=== PATIENT | female | born 1965 | race Hispanic/Latino ===

== ENCOUNTER 2018-01-16 20:37 | Emergency (ER) | payer BC, OTHER ==
[~2018-01-16 20:37] MED LIST: ALBI30PE SQ; AMLO10TA4 PO; ASPI-1005 PO; CIPR-278 PO; KETO120S2 TP; LISI40TA4 PO; LORA-705 PO; METF10004 PO; NAPR-1174 PO; PANT40TA25 PO; TRIA60LO5 TP
[2018-01-16] MEDS ORDERED: ACETAMINOPHEN-CODEINE ELIXIR 5 ML UDCUP ONE (20:50)
== END 2018-01-16 21:20 | disposition home or self-care (01) ==
LOC: EDH 20:37
DX: S93.492A Sprain of other ligament of left ankle, initial encounter (principal); E11.9 Type 2 diabetes mellitus without complications; K21.9 Gastro-esophageal reflux disease without esophagitis; I10 Essential (primary) hypertension; Z88.6 Allergy status to analgesic agent; W18.39XA Other fall on same level, initial encounter; Y93.01 Activity, walking, marching and hiking; Y92.89 Other specified places as the place of occurrence of the external cause; Y99.8 Other external cause status
CPT/HCPCS: 73610

== ENCOUNTER 2018-12-02 16:51 | Emergency (ER) | payer OTHER ==
[~2018-12-02 16:51] MED LIST changes: -ALBI30PE SQ; +ALBI30PE3 SQ; -AMLO10TA4 PO; +AMLO5TAB4 PO; +ATOR10 PO; -CIPR-278 PO; +INSU10VI3 SQ; -KETO120S2 TP; +KETO120S3 TP; +METF-446 PO; -METF10004 PO; +METO25 PO; +TRIA60LO11 TP; -TRIA60LO5 TP
== END 2018-12-02 17:07 | disposition home or self-care (01) ==
LOC: EDH 16:51
DX: J06.9 Acute upper respiratory infection, unspecified (principal); I10 Essential (primary) hypertension; E11.9 Type 2 diabetes mellitus without complications; K21.9 Gastro-esophageal reflux disease without esophagitis; Z90.710 Acquired absence of both cervix and uterus; Z88.5 Allergy status to narcotic agent; Z88.8 Allergy status to other drugs, medicaments and biological substances
CPT/HCPCS: 99281

== ENCOUNTER → 2019-05-03 | Outpatient (CLI) | payer OTHER | END | disposition home or self-care (01) | LOC: OIH 13:50 | PROVIDERS: ATTEND Internal Medicine | DX: M19.012 Primary osteoarthritis, left shoulder (principal) | CPT/HCPCS: 73030 ==

== ENCOUNTER 2021-10-10 05:01 | Emergency (ER) | payer MEDICARE, OTHER ==
[~2021-10-10] VITALS: Ht 149.9 cm; Wt 80.3 kg
[~2021-10-10 05:01] MED LIST changes: +KETO120S13 TP; -KETO120S3 TP; -LISI40TA4 PO; +LISI40TA9 PO; +LORA-699 PO; -LORA-705 PO; -PANT40TA25 PO; +PANT40TA54 PO
[2021-10-10 05:51] LABS: BASOPHILS % (AUTO) 0.5 % (0.0-5.0); EOSINOPHILS % (AUTO) 3.3 % (0.0-8.0); LYMPHOCYTES % (AUTO) 43.7 % (21.0-51.0); MEAN CORPUSCULAR HEMOGLOBIN 28.8 pg (27.0-33.0); MEAN CORPUSCULAR HGB CONC 33.2 g/dL (32.0-36.0); MEAN CORPUSCULAR VOLUME 86.7 fL (79-99); MONOCYTES % (AUTO) 3.7 % (3.0-13.0); NEUTROPHILS % (AUTO) 48.6 % (40.0-77.0); PLATELET COUNT (AUTO) 237 K/uL (130-400); RED BLOOD CELL COUNT(AUTO) 4.73 MIL/uL (4.00-5.50); RED CELL DISTRIBUTION WIDTH 13.3 % (11.0-15.5); WHITE BLOOD COUNT (AUTO) 9.7 K/uL (4.8-10.8)
[2021-10-10 05:52] LABS: APPEARANCE,URINE Clear (CLEAR); BILIRUBIN,URINE Negative (NEGATIVE); COLOR,URINE Yellow (YELLOW); GLUCOSE, URINE (UA) 500 mg/dL (NEGATIVE); KETONES,URINE Negative (NEGATIVE); LEUKOCYTE ESTERASE ,URINE Trace (NEGATIVE); NITRATE,URINE Negative (NEGATIVE); OCCULT BLOOD,URINE Negative (NEGATIVE); PH,URINE 6.5 (5.0-8.0); PROTEIN,URINE Negative (NEGATIVE); UROBILINOGEN,URINE 0.2 mg/dL (0.2-1.0)
[2021-10-10] MEDS ORDERED: KETOROLAC 30MG VIAL (30MG/ML) IV ONE (06:00)
[2021-10-10] MEDS ORDERED: FAMOTIDINE 20MG VIAL IV ONE (06:00)
[2021-10-10] MEDS ORDERED: METOCLOPRAMIDE 10 MG/2 ML VIAL IVP ONE (06:00)
[2021-10-10] MEDS ORDERED: PANTOPRAZOLE 40 MG/VIAL IVP ONE (06:00)
[2021-10-10] MEDS ORDERED: ONDANSETRON 4MG INJ IVP ONE (06:00)
[2021-10-10 06:03] LABS: BACTERIA,URINE Few /HPF (None Seen); MUCUS,URINE Few LPF (None Seen); RBC,URINE 0-1 /HPF (0-1)
[2021-10-10 06:08] LABS: ALBUMIN 3.3 g/dL (3.5-5.0); BILIRUBIN,TOTAL 0.4 mg/dL (0.2-1.0); CREATININE 0.6 mg/dL (0.5-1.5); POTASSIUM 3.9 mmol/L (3.5-5.1); TOTAL PROTEIN, SERUM 7.4 g/dL (6.0-8.3)
[2021-10-10] MEDS ORDERED: ONDA4TAB10 PO (08:26)
[2021-10-10] MEDS ORDERED: MELO7.5T12 PO (08:26)
[2021-10-10] MEDS ORDERED: DICY20TA2 PO (08:26)
[2021-10-10] MEDS ORDERED: METO-296 PO (08:26)
[2021-10-10] MEDS ORDERED: CEPH500B PO (08:26)
[2021-10-10] MEDS ORDERED: CEPHALEXIN 500 MG CAPSULE PO ONE (08:30)
[2021-10-10 09:26] VITALS: BP 132/74
== END 2021-10-10 09:33 | disposition home or self-care (01) ==
LOC: EDH 05:01
DX: E86.9 Volume depletion, unspecified (principal); R10.11 Right upper quadrant pain; R82.71 Bacteriuria; E11.9 Type 2 diabetes mellitus without complications; I10 Essential (primary) hypertension; K21.9 Gastro-esophageal reflux disease without esophagitis; Z90.49 Acquired absence of other specified parts of digestive tract; Z88.5 Allergy status to narcotic agent; Z79.1 Long term (current) use of non-steroidal anti-inflammatories (NSAID); Z79.4 Long term (current) use of insulin; Z79.82 Long term (current) use of aspirin; Z79.899 Other long term (current) drug therapy; Z87.442 Personal history of urinary calculi
CPT/HCPCS: 36415; 71045; 74176; 80053; 81001; 83690; 84484; 85025; 93005; 96374; 96375; 99285; C9113; J1885; J2405; J2765; J3490

== ENCOUNTER → 2022-05-19 | Outpatient (CLI) | payer MEDICARE ==
[~2022-05-19] MED LIST changes: +CEPH500B PO; +DICY20TA2 PO; +MELO7.5T12 PO; +METO-296 PO; +ONDA4TAB10 PO
== END | disposition home or self-care (01) ==
LOC: RAH 11:23
PROVIDERS: ATTEND Internal Medicine
DX: K59.00 Constipation, unspecified (principal)
CPT/HCPCS: 74018

== ENCOUNTER 2022-05-25 07:35 | Emergency (ER) | payer MEDICARE ==
[~2022-05-25] VITALS: Ht 149.9 cm; Wt 79.8 kg
[2022-05-25] MEDS ORDERED: ONDANSETRON 4MG INJ IVP ONE (08:00)
[2022-05-25] MEDS ORDERED: LACTATED RINGERS 1000ML 1,000 ML IV ONE (08:00)
[2022-05-25 08:18] LABS: BASOPHILS % (AUTO) 0.7 % (0.0-5.0); HEMATOCRIT 41.3 % (36-48); LYMPHOCYTES % (AUTO) 37.3 % (21.0-51.0); MEAN CORPUSCULAR HEMOGLOBIN 29.3 pg (27.0-33.0); MEAN CORPUSCULAR HGB CONC 33.7 g/dL (32.0-36.0); MEAN CORPUSCULAR VOLUME 87.1 fL (79-99); MONOCYTES % (AUTO) 4.8 % (3.0-13.0); NEUTROPHILS % (AUTO) 53.8 % (40.0-77.0); PLATELET COUNT (AUTO) 236 K/uL (130-400); RED BLOOD CELL COUNT(AUTO) 4.74 MIL/uL (4.00-5.50); RED CELL DISTRIBUTION WIDTH 13.5 % (11.0-15.5); WHITE BLOOD COUNT (AUTO) 9.9 K/uL (4.8-10.8)
[2022-05-25 08:27] LABS: APPEARANCE,URINE CLEAR (CLEAR); BILIRUBIN,URINE NEGATIVE (NEGATIVE); COLOR,URINE STRAW (YELLOW); GLUCOSE, URINE (UA) >=1000 mg/dL (NEGATIVE); KETONES,URINE NEGATIVE (NEGATIVE); LEUKOCYTE ESTERASE ,URINE NEGATIVE (NEGATIVE); NITRATE,URINE NEGATIVE (NEGATIVE); OCCULT BLOOD,URINE NEGATIVE (NEGATIVE); PROTEIN,URINE NEGATIVE (NEGATIVE); UROBILINOGEN,URINE 0.2 mg/dL (0.2-1.0)
[2022-05-25] MEDS ORDERED: MORPHINE 4 MG SYG IVP ONE (08:30)
[2022-05-25] MEDS ORDERED: IOHEXOL 350 MG/ML 100ML INFUS..BTL IV ONE (08:34)
[2022-05-25 08:39] LABS: BACTERIA,URINE None Seen /HPF (None Seen); RBC,URINE None Seen /HPF (0-1); WBC,URINE None Seen /HPF (0-1); YEAST,URINE BUDDING Few /HPF (None Seen)
[2022-05-25 08:40] LABS: SQUAMOUS EPITHELIAL CELL,UR 0-2 /HPF (0-2)
[2022-05-25 08:53] LABS: CREATININE 0.7 mg/dL (0.5-1.5)
[2022-05-25 08:57] LABS: ALBUMIN 3.5 g/dL (3.5-5.0); TOTAL PROTEIN, SERUM 7.4 g/dL (6.0-8.3)
[2022-05-25 11:10] VITALS: BP 110/54
== END 2022-05-25 11:50 | disposition home or self-care (01) ==
LOC: EDH 07:35
DX: R10.11 Right upper quadrant pain (principal); E78.00 Pure hypercholesterolemia, unspecified; I10 Essential (primary) hypertension; K21.9 Gastro-esophageal reflux disease without esophagitis; E11.9 Type 2 diabetes mellitus without complications; Z79.1 Long term (current) use of non-steroidal anti-inflammatories (NSAID); Z79.82 Long term (current) use of aspirin; Z88.5 Allergy status to narcotic agent; Z90.49 Acquired absence of other specified parts of digestive tract
CPT/HCPCS: 99285; 74177; 96374; 96361; 96375; 80053; 83690; 85025; 81001; 36415; J7120; J2405; J2270; Q9967

== ENCOUNTER 2022-07-19 18:34 | Emergency (ER) | payer MEDICARE ==
[~2022-07-19] VITALS: Ht 149.9 cm; Wt 76.2 kg
[2022-07-19] MEDS ORDERED: ONDANSETRON 4MG INJ IVP ONE (19:30)
[2022-07-19] MEDS ORDERED: 0.9%NACL 1000ML 1,000 ML IV ONE (19:30)
[2022-07-19 19:41] LABS: BASOPHILS % (AUTO) 0.4 % (0.0-5.0); EOSINOPHILS % (AUTO) 2.1 % (0.0-8.0); HEMATOCRIT 42.5 % (36-48); LYMPHOCYTES % (AUTO) 29.6 % (21.0-51.0); MEAN CORPUSCULAR HEMOGLOBIN 29.1 pg (27.0-33.0); MEAN CORPUSCULAR HGB CONC 33.6 g/dL (32.0-36.0); MEAN CORPUSCULAR VOLUME 86.4 fL (79-99); MONOCYTES % (AUTO) 5.3 % (3.0-13.0); NEUTROPHILS % (AUTO) 62.1 % (40.0-77.0); PLATELET COUNT (AUTO) 274 K/uL (130-400); RED BLOOD CELL COUNT(AUTO) 4.92 MIL/uL (4.00-5.50); RED CELL DISTRIBUTION WIDTH 13.5 % (11.0-15.5); WHITE BLOOD COUNT (AUTO) 12.7 K/uL (4.8-10.8)
[2022-07-19 19:54] LABS: APPEARANCE,URINE CLEAR (CLEAR); BILIRUBIN,URINE NEGATIVE (NEGATIVE); COLOR,URINE YELLOW (YELLOW); GLUCOSE, URINE (UA) >=1000 mg/dL (NEGATIVE); KETONES,URINE NEGATIVE (NEGATIVE); LEUKOCYTE ESTERASE ,URINE NEGATIVE Leu/uL (NEGATIVE); NITRATE,URINE NEGATIVE (NEGATIVE); OCCULT BLOOD,URINE NEGATIVE (NEGATIVE); PROTEIN,URINE NEGATIVE (NEGATIVE); UROBILINOGEN,URINE 0.2 mg/dL (0.2-1.0)
[2022-07-19 20:03] LABS: BACTERIA,URINE None Seen /HPF (None Seen); MUCUS,URINE Rare LPF (None Seen); RBC,URINE 0-1 /HPF (0-1); SQUAMOUS EPITHELIAL CELL,UR Rare /HPF (0-2); WBC,URINE 0-1 /HPF (0-1)
[2022-07-19 20:07] LABS: ALBUMIN 3.3 g/dL (3.5-5.0); CREATININE 0.7 mg/dL (0.5-1.5); POTASSIUM 3.6 mmol/L (3.5-5.1); TOTAL PROTEIN, SERUM 7.6 g/dL (6.0-8.3)
[2022-07-19] MEDS ORDERED: PROCHLORPERAZINE 10MG/2ML INJ IV ONE (20:30)
[2022-07-19 22:14] VITALS: BP 105/53
== END 2022-07-19 22:49 | disposition home or self-care (01) ==
LOC: EDH 18:34
DX: A08.4 Viral intestinal infection, unspecified (principal); E86.0 Dehydration; F32.A Depression, unspecified; E11.9 Type 2 diabetes mellitus without complications; E78.00 Pure hypercholesterolemia, unspecified; I10 Essential (primary) hypertension; K21.9 Gastro-esophageal reflux disease without esophagitis; Z88.5 Allergy status to narcotic agent; Z88.8 Allergy status to other drugs, medicaments and biological substances; Z79.899 Other long term (current) drug therapy; Z79.82 Long term (current) use of aspirin; Z90.49 Acquired absence of other specified parts of digestive tract; Z98.890 Other specified postprocedural states; Z79.84 Long term (current) use of oral hypoglycemic drugs
CPT/HCPCS: 99284; 96374; 96361; 96375; 80053; 83690; 85025; 81001; 36415; J7030; J0780; J2405

== ENCOUNTER → 2022-12-03 | Outpatient (CLI) | payer MEDICARE ==
[2022-12-03 14:09] LABS: ALBUMIN 3.2 g/dL (3.5-5.0); CREATININE 0.6 mg/dL (0.5-1.5); POTASSIUM 4.1 mmol/L (3.5-5.1); TOTAL PROTEIN, SERUM 7.6 g/dL (6.0-8.3)
== END | disposition home or self-care (01) ==
LOC: LAB 08:42
PROVIDERS: ATTEND Student in an Organized Health Care Education/Training Program
DX: I10 Essential (primary) hypertension (principal); E78.5 Hyperlipidemia, unspecified
CPT/HCPCS: 36415; 80053; 80061

== ENCOUNTER → 2023-02-12 | Outpatient (CLI) | payer MEDICARE ==
[2023-02-12 12:23] LABS: ALBUMIN 3.2 g/dL (3.5-5.0); CREATININE 0.6 mg/dL (0.5-1.5); POTASSIUM 3.8 mmol/L (3.5-5.1); TOTAL PROTEIN, SERUM 7.4 g/dL (6.0-8.3)
== END | disposition home or self-care (01) ==
LOC: LAB 08:21
PROVIDERS: ATTEND Student in an Organized Health Care Education/Training Program
DX: I10 Essential (primary) hypertension (principal); E78.5 Hyperlipidemia, unspecified
CPT/HCPCS: 36415; 80053; 80061

== ENCOUNTER → 2023-02-17 | Outpatient (CLI) | payer MEDICARE ==
[~2023-02-17] MED LIST changes: +IOHEXOL 350 MG/ML 100ML INFUS..BTL IV ONE; +METOPROLOL TARTRATE 1 MG/ML 5ML VIAL IV ONE
== END | disposition home or self-care (01) ==
LOC: RAH 08:09
PROVIDERS: ATTEND Student in an Organized Health Care Education/Training Program
DX: R07.9 Chest pain, unspecified (principal)
CPT/HCPCS: 75574; J3490; Q9967

== ENCOUNTER → 2023-02-23 | Outpatient (CLI) | payer MEDICARE ==
[~2023-02-23] MED LIST changes: -IOHEXOL 350 MG/ML 100ML INFUS..BTL IV ONE; -METOPROLOL TARTRATE 1 MG/ML 5ML VIAL IV ONE
== END | disposition home or self-care (01) ==
LOC: RAH 16:36
PROVIDERS: ATTEND Internal Medicine
DX: S40.012A Contusion of left shoulder, initial encounter (principal); M25.512 Pain in left shoulder; M25.572 Pain in left ankle and joints of left foot; W19.XXXA Unspecified fall, initial encounter; M77.32 Calcaneal spur, left foot; M19.012 Primary osteoarthritis, left shoulder
CPT/HCPCS: 73000; 73030; 73610; 73630

== ENCOUNTER 2023-04-20 03:47 | Emergency (ER) | payer OTHER, MEDICARE ==
[~2023-04-20] VITALS: Ht 152.4 cm; Wt 65.8 kg
[2023-04-20 03:49] VITALS: BP 140/77
== END 2023-04-20 06:42 | disposition left against medical advice (07) ==
LOC: EDH 03:47
DX: M54.50 Low back pain, unspecified (principal); Z53.21 Procedure and treatment not carried out due to patient leaving prior to being seen by health care provider
CPT/HCPCS: 93005; 99281

== ENCOUNTER → 2023-05-08 | Outpatient (CLI) | payer OTHER, MEDICARE | END | disposition home or self-care (01) | LOC: SHCH 08:08 | PROVIDERS: ATTEND Student in an Organized Health Care Education/Training Program | DX: I34.0 Nonrheumatic mitral (valve) insufficiency (principal); I11.9 Hypertensive heart disease without heart failure; E78.5 Hyperlipidemia, unspecified; E11.9 Type 2 diabetes mellitus without complications | CPT/HCPCS: 93306 ==

== ENCOUNTER 2023-09-18 14:04 | Emergency (ER) | payer OTHER, MEDICARE ==
[~2023-09-18] VITALS: Ht 149.9 cm; Wt 80.7 kg
[2023-09-18 14:53] VITALS: BP 131/76; PULSE 77; RESP 22
[2023-09-18 15:32] LABS: BASOPHILS # (AUTO) 0.03 K/uL (0.00-0.20); BASOPHILS % (AUTO) 0.3 % (0.0-5.0); EOSINOPHILS # (AUTO) 0.01 K/uL (0.00-0.70); EOSINOPHILS % (AUTO) 0.1 % (0.0-8.0); HEMATOCRIT 42.1 % (36-48); IMMATURE GRANULOCYTE ABSOLUTE 0.09 K/uL (0-1); LYMPHOCYTES # (AUTO) 2.3 K/uL (1.0-4.8); MEAN CORPUSCULAR HEMOGLOBIN 29.3 pg (27.0-33.0); MEAN CORPUSCULAR HGB CONC 33.5 g/dL (32.0-36.0); MEAN CORPUSCULAR VOLUME 87.3 fL (79-99); MONOCYTES # (AUTO) 0.3 K/uL (0.1-1.0); MONOCYTES % (AUTO) 2.3 % (3.0-13.0); NEUTROPHILS # (AUTO) 9.3 K/uL (1.8-7.7); NEUTROPHILS % (AUTO) 77.5 % (40.0-77.0); PLATELET COUNT (AUTO) 292 K/uL (130-400); RED BLOOD CELL COUNT(AUTO) 4.82 MIL/uL (4.00-5.50); RED CELL DISTRIBUTION WIDTH 13.6 % (11.0-15.5)
[2023-09-18 15:54] LABS: CREATININE 0.7 mg/dL (0.5-1.5); POTASSIUM 3.7 mmol/L (3.5-5.1)
[2023-09-18 15:59] LABS: ALBUMIN 3.4 g/dL (3.5-5.0); BILIRUBIN,TOTAL 0.3 mg/dL (0.2-1.0); TOTAL PROTEIN, SERUM 7.8 g/dL (6.0-8.3)
[2023-09-18 17:33] LABS: APPEARANCE,URINE CLEAR (CLEAR); BILIRUBIN,URINE NEGATIVE (NEGATIVE); COLOR,URINE COLORLESS (YELLOW); GLUCOSE, URINE (UA) >=1000 mg/dL (NEGATIVE); KETONES,URINE NEGATIVE (NEGATIVE); LEUKOCYTE ESTERASE ,URINE NEGATIVE Leu/uL (NEGATIVE); NITRATE,URINE NEGATIVE (NEGATIVE); OCCULT BLOOD,URINE NEGATIVE (NEGATIVE); PROTEIN,URINE NEGATIVE (NEGATIVE); UROBILINOGEN,URINE 0.2 mg/dL (0.2-1.0)
[2023-09-18 17:34] LABS: ADD UA MICROSCOPIC YES; SQUAMOUS EPITHELIAL CELL,UR RARE /HPF (0-2)
[2023-09-18] MEDS ORDERED: GUAI400T94 PO (18:39)
[2023-09-18] MEDS ORDERED: GUAIFENESIN 600 MG TABLET.ER PO ONE (19:00)
== END 2023-09-18 19:08 | disposition home or self-care (01) ==
LOC: EDH 14:04
DX: J06.9 Acute upper respiratory infection, unspecified (principal); R05.3 Chronic cough; I10 Essential (primary) hypertension; E11.9 Type 2 diabetes mellitus without complications; E78.00 Pure hypercholesterolemia, unspecified; J45.909 Unspecified asthma, uncomplicated; K21.9 Gastro-esophageal reflux disease without esophagitis; M19.90 Unspecified osteoarthritis, unspecified site; Z79.82 Long term (current) use of aspirin; Z90.49 Acquired absence of other specified parts of digestive tract; Z79.899 Other long term (current) drug therapy; Z88.5 Allergy status to narcotic agent; Z88.8 Allergy status to other drugs, medicaments and biological substances
CPT/HCPCS: 36415; 71046; 80053; 81001; 83605; 85025

== ENCOUNTER → 2023-11-18 | Outpatient (CLI) | payer OTHER, MEDICARE ==
[~2023-11-18] MED LIST changes: +GUAI400T94 PO
== END | disposition home or self-care (01) ==
LOC: RAH 16:08
PROVIDERS: ATTEND Internal Medicine
DX: M19.071 Primary osteoarthritis, right ankle and foot (principal); M77.31 Calcaneal spur, right foot; M79.671 Pain in right foot; M79.672 Pain in left foot
CPT/HCPCS: 73630

== ENCOUNTER → 2025-01-21 | Outpatient (CLI) | payer MEDICARE ==
[~2025-01-21] MED LIST changes: +FAMO-136 PO; +ONDA-243 PO; +ONDA22I IM; -ONDA4TAB10 PO
== END | disposition home or self-care (01) ==
LOC: SHCH 07:58
PROVIDERS: ATTEND Student in an Organized Health Care Education/Training Program
DX: I70.203 Unspecified atherosclerosis of native arteries of extremities, bilateral legs (principal)
CPT/HCPCS: 93925

== ENCOUNTER → 2025-04-13 | Outpatient (CLI) | payer MEDICARE, MEDICAID ==
[~2025-04-13] MED LIST changes: +LISI40TA15 PO; -LISI40TA9 PO
--- NOTE | 2025-04-13 12:04 | HMCIMG ---
US THYROID/NECK HISTORY: Thyroid cysts COMPARISON: None TECHNIQUE: Thyroid ultrasound study was performed. FINDINGS: Right thyroid lobe measures 4.8 x 1.7 x 1.4 cm. Left thyroid lobe measures 4.2 x 1 x 1 cm. Hypoechoic nodules versus cysts are seen bilaterally with the largest measuring 16 x 12 x 12 mm on the right and 4 x 4 mm on the left. IMPRESSION: 1. Bilateral thyroid nodules versus cysts may be related to goiter.
--- NOTE | 2025-04-13 16:51 | HMCIMG ---
MR SPINAL CANAL, CERV WO CON HISTORY: Spinal stenosis COMPARISON: None TECHNIQUE: MRI of the cervical spine was performed utilizing multiple pulse sequences in axial and sagittal plane. Patient was not given contrast through intravenous route. FINDINGS: No abnormal signal intensity is seen of the visualized bony structure. No loss of vertebral height is seen. There is straightening of normal lordotic cervical curvature which may be related to muscle spasm or positioning. Degenerative disc signals are present at all cervical spine levels. Cerebellar tonsils are in normal position. The cervical cord is of normal signal intensity without cord compression or impingement. At the C4-5 level, there is spondylotic disc causing anterior CSF space effacement with bilateral lateral recess stenosis and bilateral neural foraminal stenosis. The central canal measures approximately 4.9 mm in its anterior posterior dimension. At the C5-6 level, there is spondylotic disc causing anterior CSF space effacement with bilateral lateral recess stenosis and bilateral neural foraminal stenosis. The central canal measures approximately 3.7 mm in its anterior posterior dimension. At the C6-7 level, there is spondylotic disc causing anterior CSF space effacement with bilateral lateral recess stenosis and bilateral neural foraminal stenosis. The central canal measures approximately 4.9 mm in its anterior posterior dimension. IMPRESSION: 1. DJD with cervical spine spondylosis and central canal narrowing worse at C4-5, C5-6 and C6-7 levels.
== END | disposition home or self-care (01) ==
LOC: RAH 10:17
PROVIDERS: ATTEND Student in an Organized Health Care Education/Training Program
DX: M47.22 Other spondylosis with radiculopathy, cervical region (principal); E04.1 Nontoxic single thyroid nodule; M48.02 Spinal stenosis, cervical region
CPT/HCPCS: 72141; 76536